=== PATIENT | male | born 1935 | race African-American/Black ===

== ENCOUNTER 2018-07-07 11:20 | Emergency (ER) | payer BC, MEDICAID, MEDICARE ==
[~2018-07-07] VITALS: Ht 165.1 cm; Wt 55.0 kg
[2018-07-07] MEDS ORDERED: PIPERACILLIN/TAZ 3.375G PREMIX 50 ML IV ONE (12:15)
[2018-07-07] MEDS ORDERED: LIDOCAINE HCL/PF 1% 10 MG/ML 5ML VIAL IJ ONE (12:15)
[2018-07-07] MEDS ORDERED: SODIUM CHLORIDE 0.9% 1000ML BAG (SEPSIS BOLUS) IV ONE (12:15)
[2018-07-07] MEDS ORDERED: VANCOMYCIN 1 G PREMIX 200 ML IV ONE (12:15)
[2018-07-07] MEDS ORDERED: BACITRACIN ZINC OINT UDPKT TOP ONE (12:15)
[2018-07-07] MEDS ORDERED: TETANUS, DIPHTHERIA, PERTUSSIS VAC/PF 0.5ML (>7YR OLD) IM ONE (12:15)
[2018-07-07 12:45] LABS: BASOPHILS % 0.7 % (0.0-2.0); EOSINOPHILS % 0.4 % (0.0-5.0); HEMATOCRIT. 41.8 % (42.0-52.0); HEMOGLOBIN. 14.1 g/dL (14.0-18.0); LYMPHOCYTES % 14.2 % (20.0-50.0); MEAN CORPUSCULAR HEMOGLOBIN 28.7 pg (28.0-32.0); MEAN CORPUSCULAR VOLUME 85.2 fL (80.0-94.0); MEAN PLATELET VOLUME 8.9 fl (7.4-10.4); MONOCYTES % 10.3 % (2.0-8.0); NEUTROPHILS % 74.4 % (40.0-76.0); PLATELET 207 x1000/uL (130-400); RED BLOOD CELL COUNT 4.91 mill/uL (4.7-6.1); RED CELL DISTRIBUTION WIDTH 13.6 % (11.6-14.6)
[2018-07-07 12:48] LABS: CHLORIDE 101 mEq/L (98-107)
[2018-07-07] MEDS ORDERED: HYDROCODONE/ACETAMINOPHEN 5/325MG TABLET PO ONE (13:00)
[2018-07-07 15:12] VITALS: BP 136/65
== END 2018-07-07 17:13 | disposition short-term general hospital (02) ==
LOC: ER 11:20
DX: L03.114 Cellulitis of left upper limb (principal); L02.512 Cutaneous abscess of left hand; M65.842 Other synovitis and tenosynovitis, left hand; F17.200 Nicotine dependence, unspecified, uncomplicated
CPT/HCPCS: 10060; 36415; 73130; 80053; 85025; 87040; 87070; 87077; 87186; 87205; 90471; 96365; 96366; 96368; 99285; J2543; J3370; J3490; J7030; 90715